=== PATIENT | female | born 1980 | race Caucasian/White ===

== ENCOUNTER 2018-02-02 17:46 | Emergency (ER) | payer BC ==
[2018-02-02] MEDS ORDERED: Aspirin 81 MG Tab.Chew PO ONE (17:51)
[2018-02-02] MEDS ORDERED: Sodium Chloride 0.9% 1,000 ML IV ONE (17:51)
[2018-02-02] MEDS ORDERED: Nitroglycerin 2% Oint 1 GM UD Packet TOP ONE (18:33)
[2018-02-02] MEDS ORDERED: Ondansetron 4 MG/2 ML SDV IVPUSH ONE (18:48)
--- NOTE | 2018-02-02 18:48 | EDM.PDOC ---
ED HPI GENERAL MEDICAL PROBLEM - General Chief Complaint: Chest Pain Stated Complaint: CHEST PAIN Time Seen by Provider: 02/02/18 17:58 Source of Information: Reports: Patient, EMS, Family History Limitations: Reports: No Limitations - History of Present Illness INITIAL COMMENTS - FREE TEXT/NARRATIVE: HISTORY AND PHYSICAL: []37-year-old female presenting with anterior chest pain 7/10 .tingling to her arms she has pain radiating up her neck and down her left arm History of Present Illness: []Patient was present in per EMS from [place], [place] Abdomen screw had given her one Nitrostat and that had relieved her pain After moving to examination room patient related pain as a / Review of Systems: As per history of present illness and below otherwise all systems reviewed and negative. Past medical history: As per history of present illness and as reviewed below otherwise noncontributory. Surgical history: As per history of present illness and as reviewed below otherwise noncontributory. Social history: No reported history of drug or alcohol abuse. Family history: As per history of present illness and as reviewed below otherwise noncontributory. Physical exam: Alert oriented female acting age-appropriate answering questions appropriately she is red cheeks feeling hot . Pain had improved with Nitrostat here. HEENT: Atraumatic, normocehpalic, pupils reactive, negative for conjunctival pallor or scleral icterus, mucous membranes moist, throat clear, neck supple, nontender, trachea midline. Lungs: Clear to auscultation, breath sounds equal bilaterally, chest non tender. Heart: S1S2, regular, negative for clicks, rubs, or JVD. Abdomen: Soft, nondistended, nontender. Negative for masses or hepatossplenmegaly. Negative for costovertebral tenderness. Pelvis: Stable nontender. Genitourinary: Deferred. Rectal: Deferred Extremities: Atraumatic, negative for cords or calf pain. Neurovascular unremarkable. Neuro: Awake, alert, oriented. Cranial nerves II through XII unremarkable. Cerebellum unremarkable. Motor and sensory unremarkable throughout. Exam nonfocal. Pain has increased to 7/10 nitroglycerin paste applied Discussed with Dr. Wiseman in [facility] 18:36 Dr. Wiseman accepted patient for transfer. Diagnostics: []CBC CMP troponin amylase lipase EKG is x-ray 1 Therapeutics: []Nitrostat Nitropaste Impression: []Chest pain Plan: []Transferred for ground ambulance to [place] [facility] Definitive disposition and diagnosis as appropriate pending reevaluation and review of above. Onset: Today, Sudden Duration: Hour(s): Quality: Reports: Stabbing Severity: Moderate Improves with: Reports: Medication (nitrostat in ambulance) Worsens with: Reports: None Associated Symptoms: Reports: Chest Pain, Fever/Chills midsternal Pain Score (Numeric/FACES): 5 - Related Data Allergies Allergy/AdvReac Type Severity Reaction Status Date / Time amoxicillin Allergy Severe Hives Verified 02/02/18 17:55 sulfamethoxazole Allergy Severe Hives Verified 02/02/18 17:55 [From Bactrim] trimethoprim [From Bactrim] Allergy Severe Hives Verified 02/02/18 17:55 morphine Allergy Hives Verified 02/02/18 17:55 disolvable sutures Allergy Hives Uncoded 02/02/18 17:55 Home Meds: Home Meds Sertraline HCl 50 mg PO DAILY 02/02/18 [History] ED ROS GENERAL - Review of Systems Review Of Systems: ROS reveals no pertinent complaints other than HPI. ED EXAM, GENERAL - Physical Exam Exam: See Below (see dictation) Course - Vital Signs Last Recorded V/S: Last Vital Signs Temp 36.7 C 02/02/18 17:56 Pulse 70 02/02/18 17:56 Resp 18 02/02/18 17:56 BP 171/89 H 02/02/18 17:56 Pulse Ox 98 02/02/18 17:56 - Orders/Labs/Meds Orders: Active Orders 24 hr Category Date Time Status EKG Documentation Completion [RC] STAT Care 02/02/18 17:52 Active Chest 1V Frontal [CR] Stat Exams 02/02/18 17:52 Ordered CKMB [CHEM] Stat Lab 02/02/18 17:58 Received COMPREHENSIVE METABOLIC PN,CMP [CHEM] Stat Lab 02/02/18 17:58 Received CREATINE KINASE,CK [CHEM] Stat Lab 02/02/18 17:58 Received HCG QUALITATIVE,URINE [URCHEM] Stat Lab 02/02/18 18:19 Ordered LIPASE [CHEM] Stat Lab 02/02/18 17:58 Received TROPONIN I [CHEM] Stat Lab 02/02/18 17:58 Received UA W/MICROSCOPIC [URIN] Stat Lab 02/02/18 18:19 Ordered Sodium Chloride 0.9% [Normal Saline] 1,000 ml Med 02/02/18 17:51 Active IV STAT Medication Orders Sodium Chloride (Normal Saline) 1,000 mls @ 999 mls/hr IV STAT ONE Stop: 02/02/18 18:51 Labs: Laboratory Tests 02/02/18 02/02/18 02/02/18 Range/Units 17:58 17:58 18:19 WBC 9.71 (4.0-11.0) K/uL RBC 4.53 (4.30-5.90) M/uL Hgb 11.9 L (12.0-16.0) g/dL Hct 38.6 (36.0-46.0) % MCV 85.2 (80.0-98.0) fL MCH 26.3 L (27.0-32.0) pg MCHC 30.8 L (31.0-37.0) g/dL RDW Std Deviation 43.9 (28.0-62.0) fl RDW Coeff of Danilo 14 (11.0-15.0) % Plt Count 242 (150-400) K/uL MPV 10.10 (7.40-12.00) fL Neut % (Auto) 70.5 (48.0-80.0) % Lymph % (Auto) 19.2 (16.0-40.0) % [place] % (Auto) 6.4 (0.0-15.0) % Eos % (Auto) 3.5 (0.0-7.0) % Baso % (Auto) 0.4 (0.0-1.5) % Neut # (Auto) 6.9 H (1.4-5.7) K/uL Lymph # (Auto) 1.9 (0.6-2.4) K/uL [place] # (Auto) 0.6 (0.0-0.8) K/uL Eos # (Auto) 0.3 (0.0-0.7) K/uL Baso # (Auto) 0.0 (0.0-0.1) K/uL Nucleated RBC % 0.0 /100WBC Nucleated RBCs # 0 K/uL INR 0.91 Urine Color YELLOW Urine Appearance SLT CLOUDY Urine pH 6.0 (5.0-8.0) Ur Specific [place] 1.010 (1.001-1.035) Urine Protein NEGATIVE (NEGATIVE) mg/dL Urine Glucose (UA) NEGATIVE (NEGATIVE) mg/dL Urine Ketones NEGATIVE (NEGATIVE) mg/dL Urine Occult Blood LARGE H (NEGATIVE) Urine Nitrite NEGATIVE (NEGATIVE) Urine Bilirubin NEGATIVE (NEGATIVE) Urine Urobilinogen 0.2 (<2.0) EU/dL Ur Leukocyte Esterase NEGATIVE (NEGATIVE) Urine RBC 12-15 (0-2/HPF) Urine WBC 0-1 (0-5/HPF) Ur Epithelial Cells MODERATE (NONE-FEW) Amorphous Sediment FEW (NEGATIVE) Urine Bacteria FEW (NEGATIVE) Urine HCG, Qual (NEGATIVE) 02/02/18 Range/Units 18:19 WBC (4.0-11.0) K/uL RBC (4.30-5.90) M/uL Hgb (12.0-16.0) g/dL Hct (36.0-46.0) % MCV (80.0-98.0) fL MCH (27.0-32.0) pg MCHC (31.0-37.0) g/dL RDW Std Deviation (28.0-62.0) fl RDW Coeff of Danilo (11.0-15.0) % Plt Count (150-400) K/uL MPV (7.40-12.00) fL Neut % (Auto) (48.0-80.0) % Lymph % (Auto) (16.0-40.0) % [place] % (Auto) (0.0-15.0) % Eos % (Auto) (0.0-7.0) % Baso % (Auto) (0.0-1.5) % Neut # (Auto) (1.4-5.7) K/uL Lymph # (Auto) (0.6-2.4) K/uL [place] # (Auto) (0.0-0.8) K/uL Eos # (Auto) (0.0-0.7) K/uL Baso # (Auto) (0.0-0.1) K/uL Nucleated RBC % /100WBC Nucleated RBCs # K/uL INR Urine Color Urine Appearance Urine pH (5.0-8.0) Ur Specific [place] (1.001-1.035) Urine Protein (NEGATIVE) mg/dL Urine Glucose (UA) (NEGATIVE) mg/dL Urine Ketones (NEGATIVE) mg/dL Urine Occult Blood (NEGATIVE) Urine Nitrite (NEGATIVE) Urine Bilirubin (NEGATIVE) Urine Urobilinogen (<2.0) EU/dL Ur Leukocyte Esterase (NEGATIVE) Urine RBC (0-2/HPF) Urine WBC (0-5/HPF) Ur Epithelial Cells (NONE-FEW) Amorphous Sediment (NEGATIVE) Urine Bacteria (NEGATIVE) Urine HCG, Qual NEGATIVE (NEGATIVE) Meds: Medications Generic Name Dose Route Start Last Admin Trade Name Freq PRN Reason Stop Dose Admin Sodium Chloride 1,000 mls @ 999 mls/hr 02/02/18 17:51 Normal Saline IV 02/02/18 18:51 STAT ONE Discontinued Medications Generic Name Dose Route Start Last Admin Trade Name Freq PRN Reason Stop Dose Admin Aspirin 324 mg 02/02/18 17:51 Aspirin PO 02/02/18 17:52 ONETIME ONE Nitroglycerin 1 gm 02/02/18 18:33 Nitro-Bid 2% TOP 02/02/18 18:34 ONETIME ONE Departure - Departure Time of Disposition: 18:48 Disposition: DC/Tfer to [facility] 02 Reason for Transfer *Q: Primary PCI Indicated Condition: Fair Clinical Impression: Atypical chest pain Referrals: PCP,None [Primary Care Provider] - Additional Instructions: The following information is given to patients seen in the emergency department who are being discharged to home. This information is to outline your options for follow-up care. We provide all patients seen in our emergency department with a follow-up referral. The need for follow-up, as well as the timing and circumstances, are variable depending upon the specifics of your emergency department visit. If you don't have a primary care physician on staff, we will provide you with a referral. We always advise you to contact your personal physician following an emergency department visit to inform them of the circumstance of the visit and for follow-up with them and/or the need for any referrals to a consulting specialist. The emergency department will also refer you to a specialist when appropriate. This referral assures that you have the opportunity for followup care with a specialist. All of these measure are taken in an effort to provide you with optimal care, which includes your followup. Under all circumstances we always encourage you to contact your private physician who remains a resource for coordinating your care. When calling for followup care, please make the office aware that this follow-up is from your recent emergency room visit. If for any reason you are refused follow-up, please contact the [facility] emergency department at and asked to speak to the emergency department charge nurse. Pain has been relieved with nitroglycerin but returns Answer to [facility] in [facility] for cardiology
[2018-02-02 18:58] LABS: CHLORIDE,CL 108 mmol/L (98-107); SODIUM,NA 140 mmol/L (136-145)
[2018-02-02] MEDS ORDERED: fentaNYL 100 MCG/2 ML SDV IVPUSH ONE (19:12)
--- NOTE | 2018-02-03 14:28 | CR ---
EXAM DATE: 02/02/18 PATIENT'S AGE: 37 Patient: NAMRATA COONEY Facility: [place], [place] Site . Site : [id number] Study: XRay Chest [id number]/21/2018 7:44:44 PM Ordering Physician: Doctor Valenzuela Final Report: INDICATION: pain, sob TECHNIQUE: Chest 1 view COMPARISON: October 15, 2007 FINDINGS: Cardiovascular and mediastinum: Cardiomegaly. Mediastinum is within normal limits. Lungs and pleural space: Eventration of the right hemidiaphragm. No sign of pleural effusion. No pneumothorax. Bones and soft tissues: No significant findings. IMPRESSION: No acute cardiopulmonary disease Dictated by Raj Hickman MD @ 02/02/2018 7:54:10 PM Dictated by: Raj Hickman MD @ 02/02/2018 19:55:31 (Electronic Signature) Report Signed by Proxy. [email or web address]
== END 2018-02-02 19:40 ==
LOC: MW.ED 17:46
DX: R07.89 Other chest pain (principal); Z88.1 Allergy status to other antibiotic agents; Z88.8 Allergy status to other drugs, medicaments and biological substances; Z79.899 Other long term (current) drug therapy
CPT/HCPCS: 36415; 71045; 80053; 81001; 81025; 82550; 82553; 83690; 84484; 85025; 85610; 93005; 96374; 96375; 99285; A9270; J2405; J3010; J7040; 99283

== ENCOUNTER 2019-09-02 18:04 | Emergency (ER) | payer BC ==
[2019-09-02] MEDS ORDERED: Ketorolac 60 MG/2 ML SDV IM ONE (18:46)
--- NOTE | 2019-09-02 19:05 | EDM.PDOC ---
ED HPI GENERAL MEDICAL PROBLEM - General Chief Complaint: Back Pain or Injury Stated Complaint: HERNIATED DISC PAIN Time Seen by Provider: 09/02/19 18:13 Source of Information: Reports: Patient History Limitations: Reports: No Limitations - History of Present Illness INITIAL COMMENTS - FREE TEXT/NARRATIVE: HISTORY AND PHYSICAL: History of present illness: Patient is a 38-year-old female who presents to the ED today with concern of low back pain that is worsened today. Patient states she is been having issues with low back pain over the last 3 months. Patient states starting today she is had an increase in her back pain. Patient denies any trauma or injury to the back or any saddle anesthesia or loss of bowel and bladder function. Patient denies any other symptoms or concerns. Patient denies fever, chills, chest pain, shortness of breath, or cough. Denies headache, neck stiff ness, change in vision, syncope, or near syncope. Denies nausea, vomiting, abdominal pain, diarrhea, constipation, or dysuria. Has not noted any blood in urine or stool. Patient has been eating and drinking appropriately. Review of systems: As per history of present illness and below otherwise all systems reviewed and negative. Past medical history: As per history of present illness and as reviewed below otherwise noncontributory. Surgical history: As per history of present illness and as reviewed below otherwise noncontributory. Social history: See social history for further information Family history: As per history of present illness and as reviewed below otherwise noncontributory. Physical exam: General: Patient is alert, oriented, and in no acute distress. Patient sitting comfortably on exam table. HEENT: Atraumatic, normocephalic, pupils equal and reactive bilaterally, negative for conjunctival pallor or scleral icterus, mucous membranes moist, TMs normal bilaterally, throat clear, neck supple, nontender, trachea midline. No drooling or trismus noted. No meningeal signs. No hot potato voice noted. Lungs: Clear to auscultation, breath sounds equal bilaterally, chest nontender. Heart: S1S2, regular rate and rhythm without overt murmur Abdomen: Soft, nondistended, nontender. Negative for masses or hepatosplenomegaly. Negative for costovertebral tenderness. Pelvis: Stable nontender. Genitourinary: Deferred. Rectal: Deferred. Skin: Intact, warm, dry. No lesions or rashes noted. Extremities: Atraumatic, negative for cords or calf pain. Neurovascular unremarkable. No obvious deformity of the complete spine. Patient does have mild to moderate tenderness of the spinous process of the generalized lumbar region but no crepitus or step offs on palpation of the complete spine. Patient does have limited range of motion of the lumbar spine due to pain and discomfort. SLR intact bilaterally. Patellar reflex intact bilaterally. Heel/ toe gait intact. Neuro: Awake, alert, oriented. Cranial nerves II through XII unremarkable. Cerebellum unremarkable. Motor and sensory unremarkable throughout. Exam nonfocal. Notes: Discussed importance for follow-up with a primary care provider. Voices understanding and is agreeable to plan of care. Denies any further questions or concerns at this time. Diagnostics: UA, urine hCG, lumbar x-ray Therapeutics: Toradol, Norflex, Tramadol Prescription: Diclofenac, Flexeril Impression: Low back pain Plan: 1. Rest, ice, elevate the affected extremity. You can apply ice and/or heat 15 minutes on, 15 minutes off. 2. Tylenol as directed for pain management or discomfort. Medication as prescribed. 3. Follow up with the primary care provider as discussed. Return to the ED as needed and as discussed. Definitive disposition and diagnosis as appropriate pending reevaluation and review of above. Lower Back Pain Score (Numeric/FACES): 9 - Related Data Allergies Allergy/AdvReac Type Severity Reaction Status Date / Time amoxicillin Allergy Severe Hives Verified 09/02/19 18:12 sulfamethoxazole Allergy Severe Hives Verified 09/02/19 18:12 [From Bactrim] trimethoprim [From Bactrim] Allergy Severe Hives Verified 09/02/19 18:12 morphine Allergy Hives Verified 09/02/19 18:12 disolvable sutures Allergy Hives Uncoded 09/02/19 18:12 Home Meds: Home Meds Sertraline HCl 50 mg PO DAILY 02/02/18 [History] Cyclobenzaprine [Flexeril] 10 mg PO TID PRN #9 tab 09/02/19 [Rx] Diclofenac Sodium [Voltaren] 75 mg PO BIDMEALS PRN #15 tab.cr 09/02/19 [Rx] Past Medical History HEENT History: Reports: None Cardiovascular History: Reports: None Respiratory History: Reports: Pneumonia, Recurrent Gastrointestinal History: Reports: Other (See Below) Other Gastrointestinal History: lap band procedure Genitourinary History: Reports: None [employer]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 Neurological History: Reports: Other (See Below) Other Neuro History: right ulner nerve injury Psychiatric History: Reports: None Endocrine/Metabolic History: Reports: None Hematologic History: Reports: None Immunologic History: Reports: None Oncologic (Cancer) History: Reports: None Dermatologic History: Reports: None - Infectious Disease History Infectious Disease History: Reports: Chicken Pox - Past Surgical History GI Surgical History: Reports: Bariatric Procedure Musculoskeletal Surgical History: Reports: Other (See Below) Other Musculoskeletal Surgeries/Procedures:: left ankle surgery multiple times. Social & Family History - Family History Family Medical History: Noncontributory - Tobacco Use Smoking Status *Q: Current Every Day Smoker Years of Tobacco use: 10 Packs/Tins Daily: 0.5 - Caffeine Use Caffeine Use: Reports: Coffee - Recreational Drug Use Recreational Drug Use: No ED ROS GENERAL - Review of Systems Review Of Systems: Comprehensive ROS is negative, except as noted in HPI. ED EXAM, GENERAL - Physical Exam Exam: See Below (see dictation) Course - Vital Signs Last Recorded V/S: Last Vital Signs Temp 97.2 F 09/02/19 18:12 Pulse 75 09/02/19 18:12 Resp 20 09/02/19 18:12 BP 177/92 H 09/02/19 18:12 Pulse Ox 99 09/02/19 18:12 - Orders/Labs/Meds Labs: Laboratory Tests 09/02/19 09/02/19 Range/Units 18:52 18:55 Urine Color YELLOW Urine Appearance CLEAR Urine pH 6.0 (5.0-8.0) Ur Specific [place] 1.025 (1.001-1.035) Urine Protein NEGATIVE (NEGATIVE) mg/dL Urine Glucose (UA) NEGATIVE (NEGATIVE) mg/dL Urine Ketones NEGATIVE (NEGATIVE) mg/dL Urine Occult Blood NEGATIVE (NEGATIVE) Urine Nitrite NEGATIVE (NEGATIVE) Urine Bilirubin NEGATIVE (NEGATIVE) Urine Urobilinogen 0.2 (<2.0) EU/dL Ur Leukocyte Esterase NEGATIVE (NEGATIVE) Urine HCG, Qual NEGATIVE (NEGATIVE) Meds: Medications Discontinued Medications Generic Name Dose Route Start Last Admin Trade Name Freq PRN Reason Stop Dose Admin Ketorolac Tromethamine 60 mg 09/02/19 18:46 09/02/19 19:05 Toradol IM 12/19/19 18:47 60 mg ONETIME ONE Administration Orphenadrine Citrate 60 mg 09/02/19 18:46 09/02/19 19:05 Norflex IM 09/02/19 18:47 60 mg ONETIME ONE Administration Tramadol HCl 50 mg 09/02/19 20:46 Ultram PO 09/02/19 20:47 ONETIME ONE Departure - Departure Time of Disposition: 20:48 Disposition: Home, Self-Care 01 Clinical Impression: Low back pain Qualifiers: Chronicity: acute Back pain laterality: bilateral Sciatica presence: unspecified whether sciatica present Qualified Code(s): M54.5 - Low back pain - Discharge Information Prescriptions: Cyclobenzaprine [Flexeril] 10 mg PO TID PRN #9 tab PRN Reason: Spasms Diclofenac Sodium [Voltaren] 75 mg PO BIDMEALS PRN #15 tab.cr PRN Reason: Pain Referrals: PCP,None [Primary Care Provider] - Forms: ED Department Discharge Additional Instructions: The following information is given to patients seen in the emergency department who are being discharged to home. This information is to outline your options for follow-up care. We provide all patients seen in our emergency department with a follow-up referral. The need for follow-up, as well as the timing and circumstances, are variable depending upon the specifics of your emergency department visit. If you don't have a primary care physician on staff, we will provide you with a referral. We always advise you to contact your personal physician following an emergency department visit to inform them of the circumstance of the visit and for follow-up with them and/or the need for any referrals to a consulting specialist. The emergency department will also refer you to a specialist when appropriate. This referral assures that you have the opportunity for follow-up care with a specialist. All of these measure are taken in an effort to provide you with optimal care, which includes your follow-up. Under all circumstances we always encourage you to contact your private physician who remains a resource for coordinating your care. When calling for follow-up care, please make the office aware that this follow-up is from your recent emergency room visit. If for any reason you are refused follow-up, please contact the [facility] Emergency Department at and asked to speak to the emergency department charge nurse. [facility] [address] [place] [address] [facility] [address] [place] [address] 1. Rest, ice, elevate the affected area. You can apply ice and/or heat 15 minutes on, 15 minutes off. 2. Tylenol as directed for pain management or discomfort. Take medication as prescribed. 3. Follow up with the primary care provider as discussed. Return to the ED as needed and as discussed. Sepsis Event Note - Evaluation Sepsis Screening Result: No Definite Risk - Focused Exam Vital Signs: Vital Signs Temp Pulse Resp BP Pulse Ox 09/02/19 18:12 97.2 F 75 20 177/92 H 99 Date Exam was Performed: 09/02/19 Time Exam was Performed: 20:48
--- NOTE | 2019-09-02 20:45 | CR ---
INDICATION: Back pain. No injury TECHNIQUE: Lumbar spine 4 view. COMPARISON: None available FINDINGS: Six lumbarized vertebral bodies seen. Partial straightening of the lumbar lordosis. Anatomically aligned facets. Preserved vertebral body heights. Tiny early anterior osteophytes in the lower lumbar spine. Possible mild disc space narrowing at the lumbosacral junction. A lap band device and cholecystectomy clips. IMPRESSION: Mild early degenerative changes in the lower lumbar spine. Dictated by Pepe Dangelo MD @ 09/02/2019 8:43:26 PM Dictated by: Pepe Dangelo MD @ 09/02/2019 20:43:41 (Electronically Signed)
[2019-09-02] MEDS ORDERED: traMADol 50 MG Tab PO ONE (20:46)
== END 2019-09-02 21:20 | disposition home or self-care (01) ==
LOC: MW.ED 18:04
DX: M54.5 Low back pain (principal); F17.210 Nicotine dependence, cigarettes, uncomplicated; Z88.2 Allergy status to sulfonamides; Z88.5 Allergy status to narcotic agent; Z79.899 Other long term (current) drug therapy; Z88.1 Allergy status to other antibiotic agents
CPT/HCPCS: 72100; 81003; 81025; 96372; 99284; A9270; J1885; J2360

== ENCOUNTER 2021-08-15 14:08 | Emergency (ER) | payer BC ==
--- NOTE | 2021-08-15 14:41 | EDM.PDOC ---
ED HPI GENERAL MEDICAL PROBLEM - General Chief Complaint: Lower Extremity Injury/Pain Stated Complaint: WALK IN CLINIC SENT PT OVER FOR ULTRASOUND L LEG Time Seen by Provider: 08/15/21 14:13 Source of Information: Reports: Patient History Limitations: Reports: No Limitations - History of Present Illness INITIAL COMMENTS - FREE TEXT/NARRATIVE: Patient is a 40-year-old female who went to clinic because she has some painful vesicles on her left lower leg. Patient was sent here to rule out a DVT. Patient says she does have some pain in her calf is not take any long trips shaina es any leg swelling she denies any shortness of breath or any other complaints. Patient denies taking any control but does smoke cigarettes. Left Leg Pain Score (Numeric/FACES): 7 - Related Data Allergies Allergy/AdvReac Type Severity Reaction Status Date / Time amoxicillin Allergy Severe Hives Verified 08/15/21 14:18 sulfamethoxazole Allergy Severe Hives Verified 08/15/21 14:18 [From Bactrim] trimethoprim [From Bactrim] Allergy Severe Hives Verified 08/15/21 14:18 morphine Allergy Hives Verified 08/15/21 14:18 disolvable sutures Allergy Hives Uncoded 08/15/21 14:18 Home Meds: Home Meds Sertraline HCl 50 mg PO DAILY 02/02/18 [History] Cyclobenzaprine [Flexeril] 10 mg PO TID PRN #9 tab 09/02/19 [Rx] Diclofenac Sodium [Voltaren] 75 mg PO BIDMEALS PRN #15 tab.cr 09/02/19 [Rx] Past Medical History HEENT History: Reports: None Cardiovascular History: Reports: None Respiratory History: Reports: Pneumonia, Recurrent Gastrointestinal History: Reports: Other (See Below) Other Gastrointestinal History: lap band procedure Genitourinary History: Reports: None 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 Neurological History: Reports: Other (See Below) Other Neuro History: right ulner nerve injury Psychiatric History: Reports: None Endocrine/Metabolic History: Reports: None Hematologic History: Reports: None Immunologic History: Reports: None Oncologic (Cancer) History: Reports: None Dermatologic History: Reports: None - Infectious Disease History Infectious Disease History: Reports: Chicken Pox - Past Surgical History GI Surgical History: Reports: Bariatric Procedure Musculoskeletal Surgical History: Reports: Other (See Below) Other Musculoskeletal Surgeries/Procedures:: left ankle surgery multiple times. Social & Family History - Family History Family Medical History: No Pertinent Family History - Tobacco Use Tobacco Use Status *Q: Current Every Day Tobacco User Years of Tobacco use: 10 Packs/Tins Daily: 1 - Caffeine Use Caffeine Use: Reports: Coffee - Recreational Drug Use Recreational Drug Use: No Review of Systems - Review of Systems Review Of Systems: See Below Constitutional: Reports: No Symptoms Eyes: Reports: No Symptoms Ears: Reports: No Symptoms Nose: Reports: No Symptoms Mouth/Throat: Reports: No Symptoms Respiratory: Reports: No Symptoms Cardiovascular: Reports: No Symptoms GI/Abdominal: Reports: No Symptoms Genitourinary: Reports: No Symptoms Musculoskeletal: Reports: Leg Pain Skin: Reports: No Symptoms Neurological: Reports: No Symptoms Psychiatric: Reports: No Symptoms ED EXAM, GENERAL - Physical Exam Exam: See Below Exam Limited By: No Limitations General Appearance: Alert, WD/WN, No Apparent Distress Nose: Normal Inspection Respiratory/Chest: No Respiratory Distress GI/Abdominal: Normal Bowel Sounds Extremities: Normal Range of Motion, Non-Tender. No: Normal Inspection (Some dilated looks like varicose veins that are tender on the left medial side of the leg) Neurological: Alert, Oriented, Normal Cognition, Normal Gait Course - Vital Signs Last Recorded V/S: Last Vital Signs Temp 98.7 F 08/15/21 14:19 Pulse 76 08/15/21 14:19 Resp 18 08/15/21 14:19 BP 166/85 H 08/15/21 14:19 Pulse Ox 99 08/15/21 14:19 - Re-Assessments/Exams Free Text/Narrative Re-Assessment/Exam: 08/15/21 15:55 She has a superficial venous thrombosis no associated DVT patient will be discharged home. Departure - Departure Time of Disposition: 15:56 Disposition: Home, Self-Care 01 Condition: Good Clinical Impression: Superficial vein thrombosis - Discharge Information *PRESCRIPTION DRUG MONITORING PROGRAM REVIEWED*: Not Applicable *COPY OF PRESCRIPTION DRUG MONITORING REPORT IN PATIENT ABEBE: Not Applicable Instructions: Venous Thromboembolism Prevention Forms: ED Department Discharge Additional Instructions: You were seen today for pain to your left leg you are found to have a superficial venous thrombosis this is not a deep vein thrombosis does not require any anticoagulation at this time. Recommend he follow-up to primary care physician if you have any other concerning signs or symptoms please feel free to return to the ED. The following information is given to patients seen in the emergency department who are being discharged to home. This information is to outline your options for follow-up care. We provide all patients seen in our emergency department with a follow-up referral. The need for follow-up, as well as the timing and circumstances, are variable depending upon the specifics of your emergency department visit. If you don't have a primary care physician on staff, we will provide you with a referral. We always advise you to contact your personal physician following an emergency department visit to inform them of the circumstance of the visit and for follow-up with them and/or the need for any referrals to a consulting specialist. The emergency department will also refer you to a specialist when appropriate. This referral assures that you have the opportunity for follow-up care with a specialist. All of these measure are taken in an effort to provide you with optimal care, which includes your follow-up. Under all circumstances we always encourage you to contact your private physician who remains a resource for coordinating your care. When calling for follow-up care, please make the office aware that this follow-up is from your recent emergency room visit. If for any reason you are refused follow-up, please contact the [facility] Emergency Department at and asked to speak to the emergency department charge nurse. Please follow up with your primary care physician. If you do not have a primary care physician, see below: [facility] [address] [place] [id number] [facility] [address] [place] [id number] Sepsis Event Note (ED) - Evaluation Sepsis Screening Result: No Definite Risk - Focused Exam Vital Signs: Vital Signs Temp Pulse Resp BP Pulse Ox 08/15/21 14:19 98.7 F 76 18 166/85 H 99 - Assessment/Plan Plan: Patient is a 40-year-old female who presents today for left calf pain and painful vessels to the left lower leg. Patient centered about DVT will order Doppler and reassess.
--- NOTE | 2021-08-15 15:38 | US ---
INDICATION: Leg pain and swelling. TECHNIQUE: Ultrasound venous duplex lower left extremity. Compression venous exam was performed using peres-scale, color Doppler, and spectral Doppler analysis. COMPARISON: None. FINDINGS: Deep veins: Sonographic imaging demonstrates the left common femoral, deep femoral, superficial femoral, popliteal, posterior tibial and the contralateral right common femoral veins to be fully compressible with normal color Doppler blood flow. Superficial veins: A superficial thrombus is present in the varicose vein in the calf. No popliteal cyst. IMPRESSION: No DVT present. A superficial thrombosis is present in a calf varicose vein. Dictated by Pete Logan MD @ 08/15/2021 3:36:54 PM (Electronically Signed)
== END 2021-08-15 16:13 | disposition home or self-care (01) ==
LOC: MW.ED 14:08
DX: I82.812 Embolism and thrombosis of superficial veins of left lower extremity (principal); Z72.0 Tobacco use; Z88.0 Allergy status to penicillin; Z88.2 Allergy status to sulfonamides; Z88.5 Allergy status to narcotic agent; Z91.048 Other nonmedicinal substance allergy status
CPT/HCPCS: 93971-26-LT; 93971-LT; 99283-25